=== PATIENT | female | born 1960 | race Caucasian/White ===

== ENCOUNTER 2021-04-18 12:47 | Observation (INO) ==
[2021-04-18] MEDS ORDERED: Ondansetron 4 MG/2 ML VIAL IVP PRN (16:18)
[2021-04-18] MEDS ORDERED: Acetaminophen 325 MG TABLET PO PRN (16:18)
[2021-04-18] MEDS ORDERED: Naloxone 0.4 MG/ML INJ IVP PRN ×2 (16:18→18:37)
[2021-04-18 17:11] LABS: Magnesium 2.3 mg/dL (1.6-2.6); Phosphorous 3.1 mg/dL (2.7-4.5)
[2021-04-18 17:20] LABS: Troponin I 0.04 ng/mL (< 0.04)
[2021-04-18] MEDS: Ipratropium 1 PUFF INHALER IH SCH (20:48)
[2021-04-19] MEDS: Ipratropium 1 PUFF INHALER IH SCH ×3 (03:38→07:55)
[2021-04-19 04:46] LABS: Hematocrit 39.4 % (35.3-44.9); Hemoglobin 13.3 g/dL (11.5-15.4); Mean Corpuscular HGB Conc 33.8 g/dL (31.6-35.5); Mean Corpuscular Hemoglobin 31.1 pg (28.0-33.3); Mean Corpuscular Volume 92.1 fL (83.0-100.0); Mean Platelet Volume 9.9 fL (9.4-12.4); Platelet Count 289 K/mcL (140-400); Red Blood Count 4.28 M/mcL (3.82-4.97); Red Cell Distribution Width 12.9 % (11.5-14.5)
[2021-04-19 05:00] LABS: BUN/Creatinine Ratio 21 (6-26); Blood Urea Nitrogen 21 mg/dL (8-23); Calcium 9.4 mg/dL (8.6-10.3); Carbon Dioxide 31 mEq/L (23-29); Chloride 98 mEq/L (98-107); Glucose 111 mg/dL (70-105); Magnesium 2.2 mg/dL (1.6-2.6); Osmolality,Calculated 280 (280-300); Potassium 4.4 mEq/L (3.5-5.1); Sodium 133 mEq/L (136-145); eGFR For African Americans > 60 (> 60); eGFR For Non-African Americans 57 (> 60)
[2021-04-19 06:00] LABS: Lymphocytes # 2.9 K/mcL (0.6-4.6); Monocytes # 0.6 K/mcL (0.0-1.3); Neutrophils # 3.5 K/mcL (1.6-8.9); Platelet Estimate Normal (Normal); Reactive Lymphocytes Present (Not Present)
[2021-04-19] MEDS ORDERED: *HR* Enoxaparin 40 MG/0.4 ML SYRINGE SQ SCH (06:00)
[2021-04-19] MEDS ORDERED: Loratadine 10 MG TABLET PO SCH (09:00)
[2021-04-19 11:18] VITALS: BP 116/69; PULSE 89; TEMP 98.1; O2SAT 97
== END 2021-04-19 12:37 | disposition home or self-care (01) ==
LOC: 3BNU → SUATTDRO 15:59
PROVIDERS: ADMIT Family Medicine; ATTEND Pharmacist